=== PATIENT | female | born 1995 | race Caucasian/White ===

== ENCOUNTER 2020-12-31 01:51 | Emergency (ER) | payer OTHER ==
[~2020-12-31 01:51] MED LIST: COLACE 100MG C100 MG PO; IBU600 MG PO; LEVOTHYROXINE50 MCG PO; NORCO 5-325 TA1 EACH PO; VITAMIN D PO
[2020-12-31 02:24] LABS: HEMOGLOBIN 13.8 gm/dl (12.3-15.3); RED BLOOD COUNT 4.45 M/UL (4.00-5.10); WHITE BLOOD COUNT 9.7 K/UL (4.5-11.0)
[2020-12-31 02:48] LABS: BUN/CREATININE RATIO 17 (0-10)
[2020-12-31] MEDS ORDERED: PERCOCET 5-3251 EACH PO (04:34)
[2020-12-31] MEDS ORDERED: ZOFRAN ODT 4 MG4 MG PO (04:34)
== END 2020-12-31 05:05 | disposition home or self-care (01) ==
LOC: ER1 01:51
PROVIDERS: Family Medicine
DX: N13.2 Hydronephrosis with renal and ureteral calculous obstruction (principal); Z88.1 Allergy status to other antibiotic agents; Z88.8 Allergy status to other drugs, medicaments and biological substances
CPT/HCPCS: 80053; 81001; 83690; 84703; 85025; 96374; 96375; 99284; J1170; J1885; J2270; J2405